=== PATIENT | female | born 1950 | race Caucasian/White ===

== ENCOUNTER 2020-09-04 13:37 | Observation (INO) | payer MEDICARE ==
[2020-09-04 13:48] LABS: Glucose,Whole Blood 137 mg/dL (75-99)
[2020-09-04] MEDS ORDERED: SODIUM CHLORIDE 0.9% 500 ML 500 ML IV STA (13:48)
[2020-09-04] MEDS ORDERED: MECLIZINE 25 MG TAB PO STA (13:50)
[2020-09-04] MEDS ORDERED: DIAZEPAM 5 MG/ML 2 ML INJ IVP STA (13:50)
--- NOTE | 2020-09-04 13:53 | ED ---
General Adult HPI - General Stated complaint: syncope Time Seen by Provider: 09/04/20 13:40 Source: patient, RN notes reviewed, old records reviewed - History of Present Illness Initial comments: This is a 69-year-old female presents emergency Department complaining of having a sudden onset of dizziness. Patient states movement of the head makes considerable he worse. Patient states closer eyes makes it better. Patient states when it occurred she became very diaphoretic and nauseated. Patient denies any vomiting. Patient denies any headache patient denies numbness weakness. Patient denies any recent fever chills or cough. Patient denies similar symptoms in the past. Patient denies any visual disturbance. - Related Data Home Medications Medication Instructions Recorded Confirmed Esomeprazole Magnesium [NexIUM] 40 mg PO DAILY 08/24/14 10/28/15 Pioglitazone HCl [Actos] 15 mg PO DAILY 08/24/14 10/28/15 Methimazole 5 mg PO DAILY 10/16/14 10/28/15 INSULIN LISPRO (HumaLOG) [humaLOG] See Protocol SQ TID PRN 10/28/15 10/28/15 Previous Rx's Medication Instructions Recorded Insulin Glargine [Lantus] 20 unit SQ HS #1 vial 10/30/15 Insulin Glargine [Lantus] 40 unit INJ QAM #0 10/30/15 metFORMIN HCL 500 mg PO BID #60 tablet 10/30/15 Allergies Allergy/AdvReac Type Severity Reaction Status Date / Time No Known Allergies Allergy Verified 10/28/15 12:49 Review of Systems ROS Statement: Those systems with pertinent positive or pertinent negative responses have been documented in the HPI. ROS Other: All systems not noted in ROS Statement are negative. Past Medical History Past Medical History: Diabetes Mellitus, Hypertension Additional Past Medical History / Comment(s): hyperthyroid, HX OF RIGGS'S ESOPHAGUS History of Any Multi-Drug Resistant Organisms: None Reported Past Surgical History: Section, Hernia Repair, Hysterectomy Additional Past Surgical History / Comment(s): 7 abdominal surgeries -ended in 1992 Past Anesthesia/Blood Transfusion Reactions: No Reported Reaction Past Psychological History: No Psychological Hx Reported Past Alcohol Use History: None Reported Past Drug Use History: None Reported - Past Family History Mother Family Medical History: Cancer Additional Family Medical History / Comment(s): LYMPHOMA General Exam - General Exam Comments Initial Comments: GENERAL: Patient is well-developed and well-nourished. Patient is nontoxic and well- hydrated and is in mild distress. ENT: Neck is soft and supple. No significant lymphadenopathy is noted. Oropharynx is clear. Moist mucous membranes. Neck has full range of motion without eliciting any pain. EYES: The sclera were anicteric and conjunctiva were pink and moist. Extraocular movements were intact and pupils were equal round and reactive to light. Eyelids were unremarkable. PULMONARY: Unlabored respirations. Good breath sounds bilaterally. No audible rales rhonchi or wheezing was noted. CARDIOVASCULAR: There is a regular rate and rhythm without any murmurs gallops or rubs. ABDOMEN: Soft and nontender with normal bowel sounds. SKIN: Skin is clear with no lesions or rashes and otherwise unremarkable. NEUROLOGIC: Patient is alert and oriented x3. Cranial nerves II through XII are grossly intact. Motor and sensory are also intact. Normal speech, volume and content. Symmetrical smile. Finger to nose testing bilaterally was normal. MUSCULOSKELETAL: Normal extremities with adequate strength and full range of motion. No lower extremity swelling or edema. No calf tenderness. LYMPHATICS: No significant lymphadenopathy is noted PSYCHIATRIC: Normal psychiatric evaluation. Course Vital Signs 09/04/20 09/04/20 13:38 14:49 Temperature 97.6 F Pulse Rate 69 73 Respiratory 18 18 Rate Blood Pressure 131/56 140/76 O2 Sat by Pulse 100 98 Oximetry Medical Decision Making - Medical Decision Making EKG shows normal sinus rhythm at 69 bpm WA interval is 144 QRS is 92 QT interval is 428 QTC is 458. Patient's EKG shows no ST segment elevation or depression. Computed tomography scan of the brain shows no acute abnormality. Chest x-ray shows no acute abnormality. I went back into the room to reevaluate the patient she was unable to even sit up in bed without getting extremely dizzy and nauseated. Patient states she could not go home and this condition. I spoke with the [facility] hospitalist and wanted to admit the patient admitted the patient wrote admitting orders. - Lab Data Result diagrams: 09/04/20 14:00 09/04/20 14:00 Lab Results 09/04/20 09/04/20 09/04/20 Range/Units 13:44 14:00 14:00 WBC 4.7 (3.8-10.6) k/uL RBC 4.20 (3.80-5.40) m/uL Hgb 13.0 (11.4-16.0) gm/dL Hct 39.8 (34.0-46.0) % MCV 94.9 (80.0-100.0) fL MCH 30.9 (25.0-35.0) pg MCHC 32.6 (31.0-37.0) g/dL RDW 12.8 (11.5-15.5) % Plt Count 178 (150-450) k/uL Neutrophils % 71 % Lymphocytes % 19 % Monocytes % 5 % Eosinophils % 3 % Basophils % 1 % Neutrophils # 3.3 (1.3-7.7) k/uL Lymphocytes # 0.9 L (1.0-4.8) k/uL Monocytes # 0.2 (0-1.0) k/uL Eosinophils # 0.1 (0-0.7) k/uL Basophils # 0.0 (0-0.2) k/uL Sodium 136 L (137-145) mmol/L Potassium 4.0 (3.5-5.1) mmol/L Chloride 105 (98-107) mmol/L Carbon Dioxide 20 L (22-30) mmol/L Anion Gap 11 mmol/L BUN 24 H (7-17) mg/dL Creatinine 1.26 H (0.52-1.04) mg/dL Est GFR (CKD-EPI)AfAm 50 (>60 ml/min/1.73 sqM) Est GFR (CKD-EPI)NonAf 44 (>60 ml/min/1.73 sqM) Glucose 146 H (74-99) mg/dL POC Glucose (mg/dL) 137 H (75-99) mg/dL POC Glu [employer] ID [place], [place] Calcium 10.5 H (8.4-10.2) mg/dL Magnesium 1.7 (1.6-2.3) mg/dL Total Bilirubin 0.5 (0.2-1.3) mg/dL AST 26 (14-36) U/L ALT 16 (4-34) U/L Alkaline Phosphatase 90 (38-126) U/L Total Protein 6.7 (6.3-8.2) g/dL Albumin 4.2 (3.5-5.0) g/dL Disposition Clinical Impression: Vertigo Disposition: ADMITTED IP TO THIS HOSP Referrals: Linda Monzon MD [Primary Care Provider] - 1-2 days Time of Disposition: 15:06
[2020-09-04 14:37] LABS: Basophils % (A) 1 %; Eosinophils # (A) 0.1 k/uL (0-0.7); Eosinophils % (A) 3 %; HCT 39.8 % (34.0-46.0); Lymphocytes # (A) 0.9 k/uL (1.0-4.8); Lymphocytes % (A) 19 %; MCH 30.9 pg (25.0-35.0); MCHC 32.6 g/dL (31.0-37.0); MCV 94.9 fL (80.0-100.0); Mean Platelet Volume 7.2; Monocytes # (A) 0.2 k/uL (0-1.0); Monocytes % (A) 5 %; Neutrophils # (A) 3.3 k/uL (1.3-7.7); Neutrophils % (A) 71 %; Platelet Count 178 k/uL (150-450); RDW 12.8 % (11.5-15.5); WBC 4.7 k/uL (3.8-10.6)
[2020-09-04 14:44] LABS: Albumin 4.2 g/dL (3.5-5.0); Calcium 10.5 mg/dL (8.4-10.2); Magnesium 1.7 mg/dL (1.6-2.3); Total Bilirubin 0.5 mg/dL (0.2-1.3); Total Protein 6.7 g/dL (6.3-8.2)
--- NOTE | 2020-09-04 14:48 | CT ---
EXAMINATION TYPE: CT brain wo con DATE OF EXAM: 09/04/2020 HISTORY: Syncope. Extraocular motor defect CT DLP: 1090.4 mGycm. Automated Exposure Control for Dose Reduction was Utilized. TECHNIQUE: CT scan of the head is performed without contrast. COMPARISON: None. FINDINGS: There is no acute intracranial hemorrhage or midline shift identified. There is diffuse v entricular and sulcal prominence consistent with diffuse age-related cerebral atrophy. There is low- attenuation in the periventricular white matter consistent with chronic small vessel ischemic change. Suprasellar cistern is maintained. The globes are intact and the visualized sinuses are clear. IMPRESSION: No acute intracranial hemorrhage or midline shift. There is mild to moderate diffuse ag e-related cerebral atrophy and mild chronic small vessel ischemic change noted.
--- NOTE | 2020-09-04 14:51 | XR ---
EXAMINATION TYPE: XR chest 2V DATE OF EXAM: 09/04/2020 COMPARISON: 10/28/2015 HISTORY: 69-year-old female with chest pain TECHNIQUE: AP and lateral views FINDINGS: Heart mildly enlarged. Low lung volumes with crowded vascular markings. Bony vasculature within kimmie l limits. No consolidation or pleural effusion. IMPRESSION: Mild cardiomegaly. Hypoventilatory changes. No acute process otherwise seen.
[2020-09-04] MEDS ORDERED: SODIUM CHLORIDE 0.9% 1,000 ML IV ONE (15:10)
[2020-09-04] MEDS ORDERED: MECLIZINE 25 MG TAB PO PRN (15:13)
[2020-09-04] MEDS ORDERED: SODIUM CHLORIDE 0.9% 500 ML 500 ML IV ONE (15:56)
--- NOTE | 2020-09-04 16:15 | CT ---
EXAMINATION TYPE: CT angio head neck DATE OF EXAM: 09/04/2020 HISTORY: Syncope, vertigo, and nausea. COMPARISON: None CT DLP: 676.4 mGycm. Automated Exposure Control for Dose Reduction was Utilized. TECHNIQUE: CTA scan of the head and neck are performed with IV Contrast, patient injected with 65 mL of Isovue 370, axial images are obtained, coronal and sagittal reformatted images are reviewed. Thre e-D reconstructed images are created on an independent workstation and reviewed. FINDINGS: Carotid/Vascular Structures: Bovine-type origin from aortic arch which is normal variant. Right commo n carotid artery shows normal origin from right brachiocephalic artery. Mild plaque left greater than right carotid bulbs. No significant stenosis in common or internal carotid arteries bilaterally. No significant plaque or stenosis left external carotid arteries bilaterally. Slightly larger or dominant left vertebral artery. Vertebral arteries are patent to basilar junction. No significant focal stenosis or aneurysmal change of the posterior circulation. There are hypoplast ic bilateral posterior communicating arteries noted. Images of the anterior circulation show patent a nterior communicating artery. No significant focal stenosis or aneurysmal change is seen. Other: Slightly levoconvex scoliotic curvature positioning. Asymmetric heterogeneous right thyroid po sterior prominence. IMPRESSION: No significant stenosis in common or internal carotid arteries bilaterally. No significa nt stenosis or aneurysmal change at the level of the [place].
[2020-09-04 16:31] LABS: Partial Thromboplastin Time 22.1 sec (22.0-30.0); Prothrombin Time 10.4 sec (9.0-12.0)
[2020-09-04] MEDS: ASPIRIN 81 MG PO SCH (16:52)
[2020-09-04 17:15] LABS: Glucose,Whole Blood 188 mg/dL (75-99)
--- NOTE | 2020-09-04 17:15 | P.HPIM ---
History of Present Illness 70-year-old pleasant female came in with complaints of lightheadedness as well as were the genus symptoms patient became diaphoretic and nauseated and patient was given juice the patient blood sugars were not low at that time. Patient denied any fever chills denied any vomiting. Patient denied any diarrhea. We do not have any orthostatic vitals available at this time patient is on methimazole recent TSH 5 days ago is within normal limits, patient has LDL of around 60 patient had a computed tomography scan of the head which showed chronic microvascular ischemic changes patient doesn't have any slurred speech or focal weakness. Patient had a CT angiogram of the head and neck which did not show any significant abnormality either. Patient does take 81 mg of aspirin at home. Patient denied any hearing problems runny nose fullness in the ears or tinnitus. Patient received a meclizine with which her symptoms improved a bit and I did perform sunil- Halspike maneuver which did not show any nystagmus but her symptoms did improve with that maneuver. Review of Systems REVIEW OF SYSTEMS: CONSTITUTIONAL: No fever, no malaise, no fatigue. HEENT: No recent visual problems or hearing problems. Denied any sore throat. CARDIOVASCULAR: No chest pain, orthopnea, PND, no palpitations, no syncope. PULMONARY: No shortness of breath, no cough, no hemoptysis. GASTROINTESTINAL: No diarrhea, no nausea, no vomiting, no abdominal pain. NEUROLOGICAL: No headaches, no weakness, no numbness. HEMATOLOGICAL: Denies any bleeding or petechiae. GENITOURINARY: Denies any burning micturition, frequency, or urgency. MUSCULOSKELETAL/RHEUMATOLOGICAL: Denies any joint pain, swelling, or any muscle pain. ENDOCRINE: Denies any polyuria or polydipsia. The rest of the 14-point review of systems is negative. Past Medical History Past Medical History: Diabetes Mellitus, GERD/Reflux, Hypertension, Osteoarthritis (OA) Additional Past Medical History / Comment(s): IDDM type II, DKA, pt states recent BUN was elevated, Sadler's esophagus, small hiatal hernia, gastric polyp, arthritis bilateral hands/back. History of Any Multi-Drug Resistant Organisms: None Reported Past Surgical History: Adenoidectomy, Appendectomy, Section, Hernia Repair, Hysterectomy, Tonsillectomy Additional Past Surgical History / Comment(s): x3, incisional hernia repair, surgery for hydatidiform, EGDs, colonoscopy Past Anesthesia/Blood Transfusion Reactions: No Reported Reaction Smoking Status: Never smoker - Past Family History Mother Family Medical History: Cancer Additional Family Medical History / Comment(s): LYMPHOMA Father Family Medical History: No Reported History Medications and Allergies Home Medications Medication Instructions Recorded Confirmed Type Atorvastatin Calcium [Lipitor] 20 mg PO DAILY 09/04/20 09/04/20 History Benazepril HCl [Lotensin] 20 mg PO DAILY 09/04/20 09/04/20 History Biotin (Unknown Strength) 1 tab PO DAILY 09/04/20 09/04/20 History Cyclobenzaprine [Flexeril] 10 mg PO DAILY 09/04/20 09/04/20 History Insulin Glargine [Lantus] 40 unit SQ DAILY 09/04/20 09/04/20 History Magnesium (Unknown Strength) 1 tab PO DAILY 09/04/20 09/04/20 History Pioglitazone [Actos] 30 mg PO DAILY 09/04/20 09/04/20 History Vitamin C (Unknown Strength) 1 tab PO DAILY 09/04/20 09/04/20 History Vitamin D (Unknown Strength) 1 tab PO DAILY 09/04/20 09/04/20 History hydroCHLOROthiazide [Hydrodiuril] 25 mg PO DAILY 09/04/20 09/04/20 History metFORMIN HCL [Glucophage] 500 mg PO DAILY 09/04/20 09/04/20 History Allergies Allergy/AdvReac Type Severity Reaction Status Date / Time No Known Allergies Allergy Verified 09/04/20 16:55 Physical Exam Vitals: Vital Signs Temp Pulse Pulse Resp BP BP Pulse Ox 09/04/20 16:30 97.4 F L 85 16 145/85 99 09/04/20 15:49 83 18 151/85 100 09/04/20 14:49 73 18 140/76 98 09/04/20 13:38 97.6 F 69 18 131/56 100 Intake and Output 09/04/20 09/04/20 09/04/20 06:59 14:59 22:59 Other: Weight 86.183 kg 86.183 kg PHYSICAL EXAMINATION: GENERAL: The patient is alert and oriented x3, not in any acute distress. Well developed, well nourished. HEENT: Pupils are round and equally reacting to light. EOMI. No scleral icterus. No conjunctival pallor. Normocephalic, atraumatic. No pharyngeal erythema. No thyromegaly. CARDIOVASCULAR: S1 and S2 present. No murmurs, rubs, or gallops. PULMONARY: Chest is clear to auscultation, no wheezing or crackles. ABDOMEN: Soft, nontender, nondistended, normoactive bowel sounds. No palpable organomegaly. MUSCULOSKELETAL: No joint swelling or deformity. EXTREMITIES: No cyanosis, clubbing, or pedal edema. NEUROLOGICAL: Gross neurological examination did not reveal any focal deficits. SKIN: No rashes. Results CBC & Chem 7: 09/04/20 14:00 09/04/20 14:00 Labs: Abnormal Lab Results - Last 24 Hours (Table) 09/04/20 09/04/20 09/04/20 Range/Units 13:44 14:00 14:00 Lymphocytes # 0.9 L (1.0-4.8) k/uL Sodium 136 L (137-145) mmol/L Carbon Dioxide 20 L (22-30) mmol/L BUN 24 H (7-17) mg/dL Creatinine 1.26 H (0.52-1.04) mg/dL Glucose 146 H (74-99) mg/dL POC Glucose (mg/dL) 137 H (75-99) mg/dL Calcium 10.5 H (8.4-10.2) mg/dL Thrombosis Risk Factor Assmnt - Choose All That Apply Any of the Below Risk Factors Present?: Yes Each Factor Represents 1 point: Obesity (BMI >25) Other Risk Factors: Yes Each Risk Factor Represents 2 Points: Age 61-74 years Other congenital or acquired thrombophilia - If yes, enter type in comment: No Thrombosis Risk Factor Assessment Total Risk Factor Score: 3 Thrombosis Risk Factor Assessment Level: Moderate Risk Assessment and Plan Plan: -Vertigo: Appears to be preserved) possibly benign push vertigo, continue with meclizine - chronic kidney disease stage 3: 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 -Type 2 diabetes mellitus [place] patient will be continued on her insulin along with sliding scale hold off on by mouth hypoglycemic agents. because of chronic kidney disease patient is probably not an appropriate candidate for metformin. -Hypertension patient will be continued on MICAELA inhibitor although patient did not benefit from hydrochlorothiazide because of her poor renal function -Hyperthyroidism continue with methimazole recent TSH is within normal limits -History of CVA in the past patient will be continued on aspirin -Hyperlipidemia. -DVT prophylaxis early ambulation
[2020-09-04] MEDS: INSULIN ASPART (NovoLOG) 100 UNIT/ML VIAL SQ SCH ×2 (17:50→20:45)
[2020-09-04 20:44] LABS: Glucose,Whole Blood 343 mg/dL (75-99)
[2020-09-04] MEDS: SODIUM CHLORIDE 0.9% 1,000 ML IV SCH (20:45)
[2020-09-04 22:36] VITALS: RESP 18
[2020-09-05] MEDS: SODIUM CHLORIDE 0.9% 1,000 ML IV SCH (05:27)
[2020-09-05 06:18] LABS: Glucose,Whole Blood 183 mg/dL (75-99)
[2020-09-05] MEDS: INSULIN ASPART (NovoLOG) 100 UNIT/ML VIAL SQ SCH ×2 (06:30→13:22)
[2020-09-05] MEDS ORDERED: INSULIN DETEMIR (LEVEMIR) 100 UNIT/ML SYR SQ SCH (07:00)
[2020-09-05 08:03] LABS: Calcium 9.3 mg/dL (8.4-10.2); Potassium 3.8 mmol/L (3.5-5.1)
[2020-09-05] MEDS: ASPIRIN 81 MG PO SCH (08:28)
[2020-09-05] MEDS ORDERED: PIOGLITAZONE 30 MG TAB PO SCH (09:00)
[2020-09-05] MEDS ORDERED: ATORVASTATIN 20 MG TAB PO SCH (09:00)
[2020-09-05] MEDS ORDERED: CYCLOBENZAPRINE 10 MG TAB PO SCH (09:00)
[2020-09-05] MEDS ORDERED: lisinopriL 20 MG TAB PO SCH (09:00)
[2020-09-05 10:38] VITALS: BP 126/59; PULSE 95; TEMP 97.8
--- NOTE | 2020-09-05 10:50 | P.CNNES ---
History of Present Illness Consult date: 09/05/20 Requesting physician: Mickey Hermosillo Reason for Consult: Vertigo, extraocular abnormality History of Present Illness: Patient is a 69-year-old female came to the hospital yesterday at 3 PM for possible hypoglycemia. Patient states that she has history of diabetes for 15 years. Yesterday morning she had an apple for breakfast, then took her usual dose of Lantus, metformin and Actos and then went to [facility]. After completing shopping, she continued to walk [place] the [place] to perform [place] exercises. When she was all done, she was driving back to her home, then she started feeling dizzy, lightheaded, diaphoretic, chills, felt her coordination was off. She felt her blood sugar was low. She pulled over, and went to a gas station, honked, and the gas station staff brought her big apple juice bottle. They also gave her candies. EMS was also called and when they arrived, patient was sitting in the interstate bus driver's seat of her car, alert and oriented 4. Patient was appearing pale, extremely diaphoretic. Her vitals at the scene was blood pressure 149/52, pulse rate 78, respirations 16 and saturation 95% and blood sugar was 133. This was done about 15 minutes after she had drank all the apple juice. She still felt slightly weak, therefore decided to come to the hospital by ambulance. Vital signs on arrival was blood pressure 131/56, pulse rate [address] head showed no acute intracranial hemorrhage or midline shift. There is mild to moderate diffuse age-related cerebral atrophy and mild chronic small vessel ischemic change noted. On my review, the visualized paranasal sinuses are clear and external auditory canals clear. Chest x-ray showed mild cardiomegaly. Hypoventilatory changes. No acute process otherwise seen. EKG shows normal sinus rhythm with sinus arrhythmia. Minimal voltage criteria for LVH. Nonspecific T wave abnormality. CTA of head and neck showed no s ignificant stenosis in common or internal carotid arteries bilaterally. No significant stenosis or aneurysmal change at the level of [place]. Blood tests shows normal CBC, PT/PTT. Chem-7 with BUN 19, creatinine 1.20. Hemoglobin A1c 9.8 on 08/30/2020. TSH is normal. Total cholesterol 146, LDL 67, HDL 65 and triglycerides 69. Patient states she has history of diabetes for 15 years, hypertension which is controlled. She has history of blood sugar going down as low as 40 about a year ago. Patient takes aspirin 81 mg daily, Lipitor 40 mg. She is nonsmoker does not drink alcohol. She is a retired nurse. No previous history of strokes or TIA. Review of Systems At present completely unremarkable. Patient denied any chest pain, shortness of breath wheezing or cough. Denies double vision loss of vision hoarseness, sore throat or dysphagia. Denies any facial droop, focal numbness tingling or weakness on any stroke symptoms. All other 14 points of review of systems reviewed and unremarkable. Past Medical History Past Medical History: Diabetes Mellitus, GERD/Reflux, Hypertension, Osteoarthritis (OA) Additional Past Medical History / Comment(s): IDDM type II, DKA, pt states rec ent BUN was elevated, Sadler's esophagus, small hiatal hernia, gastric polyp, arthritis bilateral hands/back. History of Any Multi-Drug Resistant Organisms: None Reported Past Surgical History: Adenoidectomy, Appendectomy, Section, Hernia R epair, Hysterectomy, Tonsillectomy Additional Past Surgical History / Comment(s): x3, incisional hernia repair, surgery for hydatidiform, EGDs, colonoscopy Past Anesthesia/Blood Transfusion Reactions: No Reported Reaction Smoking Status: Never smoker - Past Family History Mother Family Medical History: Cancer Additional Family Medical History / Comment(s): LYMPHOMA Father Family Medical History: No Reported History Medications and Allergies Home Medications Medication Instructions Recorded Confirmed Type Atorvastatin Calcium [Lipitor] 20 mg PO DAILY 09/04/20 09/04/20 History Benazepril HCl [Lotensin] 20 mg PO DAILY 09/04/20 09/04/20 History Biotin (Unknown Strength) 1 tab PO DAILY 09/04/20 09/04/20 History Cyclobenzaprine [Flexeril] 10 mg PO DAILY 09/04/20 09/04/20 History Insulin Glargine [Lantus] 40 unit SQ DAILY 09/04/20 09/04/20 History Magnesium (Unknown Strength) 1 tab PO DAILY 09/04/20 09/04/20 History Pioglitazone [Actos] 30 mg PO DAILY 09/04/20 09/04/20 History Vitamin C (Unknown Strength) 1 tab PO DAILY 09/04/20 09/04/20 History Vitamin D (Unknown Strength) 1 tab PO DAILY 09/04/20 09/04/20 History hydroCHLOROthiazide [Hydrodiuril] 25 mg PO DAILY 09/04/20 09/04/20 History metFORMIN HCL [Glucophage] 500 mg PO DAILY 09/04/20 09/04/20 History Allergies Allergy/AdvReac Type Severity Reaction Status Date / Time No Known Allergies Allergy Verified 09/04/20 16:55 Physical Examination - Vital Signs Vital Signs: Vital Signs Temp Pulse Pulse Resp BP BP Pulse Ox 09/05/20 02:41 97.5 F L 93 18 120/61 97 09/04/20 21:00 97.6 F 87 18 120/57 96 09/04/20 17:35 85 09/04/20 16:30 97.4 F L 85 16 145/85 99 09/04/20 15:49 83 18 151/85 100 09/04/20 14:49 73 18 140/76 98 09/04/20 13:38 97.6 F 69 18 131/56 100 Intake and Output 09/04/20 09/05/20 09/05/20 22:59 06:59 14:59 Other: Voiding Method Toilet Toilet # Voids 1 Weight 86.183 kg On examination patient is an elderly female, very pleasant, in no acute distress. Patient is alert awake oriented to time place and person. Speech and language functions are normal. Attention and concentration fund of knowledge is adequate. On cranial nerve examination pupils are round and reacting to light, visual small are full on confrontation. Extraocular muscles are intact with no nystagmus. Face is symmetric, tongue protrudes to the midline. Palatal elevation and sensation normal. Hearing and shoulder shrug normal. On muscle strength testing there is no pronator drift and the strength is normal in arms and legs distally and proximally. Reflexes are diminished and plantars are downgoing. Sensory touch is equal. No ataxia for [id number] or jizm-ut-[id number] testing. Tone and bulk of muscles normal. Gait normal. No carotid bruit or murmur, peripheral pulses present. No peripheral edema. Chest is clear, abdomen is soft nontender. Results - Laboratory Findings CBC and BMP: 09/04/20 14:00 09/05/20 07:21 Abnormal Lab Findings: Abnormal Labs 09/04/20 09/04/2020 13:44 14:00 14:00 Lymphocytes # 0.9 L Sodium 136 L Carbon Dioxide 20 L BUN 24 H Creatinine 1.26 H Glucose 146 H POC Glucose (mg/dL) 137 H Calcium 10.5 H 09/04/20 09/04/20 09/05/20 17:13 20:38 06:15 Lymphocytes # Sodium Carbon Dioxide BUN Creatinine Glucose POC Glucose (mg/dL) 188 H 343 H 183 H Calcium 09/05/20 07:21 Lymphocytes # Sodium Carbon Dioxide BUN 19 H Creatinine 1.20 H Glucose 167 H POC Glucose (mg/dL) Calcium Assessment and Plan Assessment: * Episode of lightheadedness, diaphoresis, dizziness, likely due to hypoglycemia. Patient had taken an apple for breakfast, and then took all of her medications including Lantus, metformin and Actos. This probably led to hypoglycemia. Her blood sugar was 133 when EMS arrived, probably has normalized after she had drank a big bottle of apple juice. Current examination is nonfocal. * Diabetes, not very well controlled the last A1c 9.8 on 08/30/2020. * Hypertension Plan: * No other neurological workup indicated. * Avoid episodes of hypoglycemia by taking regular meals. * Optimize control of diabetes. Hemoglobin A1c 9.8. * Continue aspirin and statins. * Neurologically clear for discharge.
[2020-09-05 13:06] LABS: Glucose,Whole Blood 143 mg/dL (75-99)
--- NOTE | 2020-09-05 14:32 | P.DS ---
Providers Date of admission: 09/04/20 15:12 Attending physician: Carley Escobar Consults: 09/04/20 15:10 Consult Physician Urgent Consulting Provider: Az Aguilera Consult Reason/Comments: Vertigo, extraocular abnormality Do you want consulting provider notified?: Yes Primary care physician: Linda Eleanor Slater Hospital Course: 70-year-old pleasant female came in with complaints of lightheadedness as well as were the genus symptoms patient became diaphoretic and nauseated and patient was given juice the patient blood sugars were not low at that time. Patient denied any fever chills denied any vomiting. Patient denied any diarrhea. We do not have any orthostatic vitals available at this time patient is on methimazole recent TSH 5 days ago is within normal limits, patient has LDL of around 60 patient had a computed tomography scan of the head which showed chronic microvascular ischemic changes patient doesn't have any slurred speech or focal weakness. Patient had a CT angiogram of the head and neck which did not show any significant abnormality either. Patient does take 81 mg of aspirin at home. Patient denied any hearing problems runny nose fullness in the ears or tinnitus. Patient received a meclizine with which her symptoms improved a bit and I did perform sunil- Halspike maneuver which did not show any nystagmus but her symptoms did improve with that maneuver. 09/05/2020 Patient's symptoms resolved. And patient wanted to go home. Is on hydrocodone for his does have chronic kidney disease because of which are hydrocodone thiazide may not be beneficial at all her regular thiazide will be discontinued patient blood pressure is doing well without that medication at this time. Patient is also on metformin although metformin can be used since her kidney function is borderline and discontinue metformin as well and patient will be discharged neurology evaluated the patient and that they do not believe patient will need further workup and. They believe his symptoms are secondary to hypoglycemia although she doesn't have any hyperglycemic episodes here. PHYSICAL EXAMINATION: GENERAL: The patient is alert and oriented x3, not in any acute distress. Well developed, well nourished. HEENT: Pupils are round and equally reacting to light. EOMI. No scleral icterus. No conjunctival pallor. Normocephalic, atraumatic. No pharyngeal erythema. No thyromegaly. CARDIOVASCULAR: S1 and S2 present. No murmurs, rubs, or gallops. PULMONARY: Chest is clear to auscultation, no wheezing or crackles. ABDOMEN: Soft, nontender, nondistended, normoactive bowel sounds. No palpable organomegaly. MUSCULOSKELETAL: No joint swelling or deformity. EXTREMITIES: No cyanosis, clubbing, or pedal edema. NEUROLOGICAL: Gross neurological examination did not reveal any focal deficits. SKIN: No rashes. Assessment and Plan Plan: -Vertigo: Peripheral vertigo probably benign push vertigo symptoms resolved at this time - chronic kidney disease stage 3: 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 -Type 2 diabetes mellitus -Hypertension -Hyperthyroidism continue with methimazole recent TSH is within normal limits -History of CVA in the past patient will be continued on aspirin -Hyperlipidemia. Plan - Discharge Summary Discharge Rx Participant: No New Discharge Prescriptions: Continue Insulin Glargine [Lantus] 40 unit SQ DAILY Biotin (Unknown Strength) 1 tab PO DAILY Magnesium (Unknown Strength) 1 tab PO DAILY Vitamin C (Unknown Strength) 1 tab PO DAILY Vitamin D (Unknown Strength) 1 tab PO DAILY Atorvastatin Calcium [Lipitor] 20 mg PO DAILY Benazepril HCl [Lotensin] 20 mg PO DAILY Cyclobenzaprine [Flexeril] 10 mg PO DAILY Pioglitazone [Actos] 30 mg PO DAILY Discontinued hydroCHLOROthiazide [Hydrodiuril] 25 mg PO DAILY metFORMIN HCL [Glucophage] 500 mg PO DAILY Discharge Medication List Atorvastatin Calcium [Lipitor] 20 mg PO DAILY 09/04/20 [History] Benazepril HCl [Lotensin] 20 mg PO DAILY 09/04/20 [History] Biotin (Unknown Strength) 1 tab PO DAILY 09/04/20 [History] Cyclobenzaprine [Flexeril] 10 mg PO DAILY 09/04/20 [History] Insulin Glargine [Lantus] 40 unit SQ DAILY 09/04/20 [History] Magnesium (Unknown Strength) 1 tab PO DAILY 09/04/20 [History] Pioglitazone [Actos] 30 mg PO DAILY 09/04/20 [History] Vitamin C (Unknown Strength) 1 tab PO DAILY 09/04/20 [History] Vitamin D (Unknown Strength) 1 tab PO DAILY 09/04/20 [History] Follow up Appointment(s)/Referral(s): Linda Monzon MD [Primary Care Provider] - 09/11/20 1:00 pm Patient Instructions/Handouts: Dehydration (GEN), Hypoglycemia in a Person with Diabetes (GEN), Dizziness (GEN) Discharge Disposition: HOME SELF-CARE
== END 2020-09-05 13:51 | disposition home or self-care (01) ==
LOC: EC 13:37 → 3NCARDOBS 15:12
PROVIDERS: ADMIT Hospitalist; ATTEND Hospitalist
DX: R42 Dizziness and giddiness (principal); E11.22 Type 2 diabetes mellitus with diabetic chronic kidney disease; E11.649 Type 2 diabetes mellitus with hypoglycemia without coma; E78.5 Hyperlipidemia, unspecified; I12.9 Hypertensive chronic kidney disease with stage 1 through stage 4 chronic kidney disease, or unspecified chronic kidney disease; K22.70 Barrett's esophagus without dysplasia; R61 Generalized hyperhidrosis; R11.0 Nausea; M19.041 Primary osteoarthritis, right hand; M19.042 Primary osteoarthritis, left hand; N18.30 Chronic kidney disease, stage 3 unspecified; Z79.4 Long term (current) use of insulin; Z79.82 Long term (current) use of aspirin; Z79.899 Other long term (current) drug therapy; Z80.7 Family history of other malignant neoplasms of lymphoid, hematopoietic and related tissues; Z86.73 Personal history of transient ischemic attack (TIA), and cerebral infarction without residual deficits; Z90.710 Acquired absence of both cervix and uterus
CPT/HCPCS: 96361; 96374; 99285; 36415; 93005; 80053; 80048; 83735; 84484; 85025; 85610; 85730; 71046; 70496; 70450; 70498; G0378 ×2; J3360; Q9967

== ENCOUNTER 2022-06-28 10:10 | Emergency (ER) | payer MEDICARE ==
[2022-06-28 10:18] VITALS: BP 162/67; PULSE 82; RESP 18; TEMP 97.7
[2022-06-28] MEDS ORDERED: SODIUM CHLORIDE 0.9% 500 ML 500 ML IV STA (10:22)
--- NOTE | 2022-06-28 10:27 | ED ---
General Adult HPI - General Chief complaint: Weakness Stated complaint: Weakness Time Seen by Provider: 06/28/22 10:10 Source: patient, EMS, RN notes reviewed, old records reviewed Mode of arrival: EMS Limitations: no limitations - History of Present Illness Initial comments: This is a 71-year-old female who presents emergency Department complaining that the last 2 morning she woke up and her legs are cramping and she can't stand because she feels too weak. Patient states she sits around for a little while and then it goes away she's finding the rest of the day. Patient states currently she feels fine and the pain and cramping is gone and she feels like her strength is back. Patient states she also wakes up and often times her sugar is under 70 and this morning it was 57. Patient doesn't believe that's the problem because she says this happened multiple times in the past. Patient denies any fever chills or cough. Patient denies any chest pain or palpitations. Patient denies abdominal pain patient denies nausea vomiting diarrhea. - Related Data Home Medications Medication Instructions Recorded Confirmed Atorvastatin Calcium [Lipitor] 20 mg PO DAILY 09/04/20 09/04/20 Benazepril HCl [Lotensin] 20 mg PO DAILY 09/04/20 09/04/20 Biotin (Unknown Strength) 1 tab PO DAILY 09/04/20 09/04/20 Cyclobenzaprine [Flexeril] 10 mg PO DAILY 09/04/20 09/04/20 Insulin Glargine [Lantus Vial] 40 unit SQ DAILY 09/04/20 09/04/20 Magnesium (Unknown Strength) 1 tab PO DAILY 09/04/20 09/04/20 Pioglitazone [Actos] 30 mg PO DAILY 09/04/20 09/04/20 Vitamin C (Unknown Strength) 1 tab PO DAILY 09/04/20 09/04/20 Vitamin D (Unknown Strength) 1 tab PO DAILY 09/04/20 09/04/20 Allergies Allergy/AdvReac Type Severity Reaction Status Date / Time No Known Allergies Allergy Verified 06/28/22 10:16 Review of Systems ROS Statement: Those systems with pertinent positive or pertinent negative responses have been documented in the HPI. ROS Other: All systems not noted in ROS Statement are negative. Past Medical History Past Medical History: Diabetes Mellitus, GERD/Reflux, Hypertension, Osteoarthritis (OA) Additional Past Medical History / Comment(s): IDDM type II, DKA, pt states recent BUN was elevated, Sadler's esophagus, small hiatal hernia, gastric polyp, arthritis bilateral hands/back. History of Any Multi-Drug Resistant Organisms: None Reported Past Surgical History: Adenoidectomy, Appendectomy, Section, Hernia Repair, Hysterectomy, Tonsillectomy Additional Past Surgical History / Comment(s): x3, incisional hernia repair, surgery for hydatidiform, EGDs, colonoscopy Past Anesthesia/Blood Transfusion Reactions: No Reported Reaction Past Psychological History: No Psychological Hx Reported Smoking Status: Never smoker Past Alcohol Use History: None Reported Past Drug Use History: None Reported - Past Family History Mother Family Medical History: Cancer Additional Family Medical History / Comment(s): LYMPHOMA Father Family Medical History: No Reported History General Exam - General Exam Comments Initial Comments: GENERAL: Patient is well-developed and well-nourished. Patient is nontoxic and well- hydrated and is in no acute distress. ENT: Neck is soft and supple. No significant lymphadenopathy is noted. Oropharynx is clear. Moist mucous membranes. Neck has full range of motion without eliciting any pain. EYES: The sclera were anicteric and conjunctiva were pink and moist. Extraocular movements were intact and pupils were equal round and reactive to light. Eyelids were unremarkable. PULMONARY: Unlabored respirations. Good breath sounds bilaterally. No audible rales rhonchi or wheezing was noted. CARDIOVASCULAR: There is a regular rate and rhythm without any murmurs gallops or rubs. ABDOMEN: Soft and nontender with normal bowel sounds. SKIN: Skin is clear with no lesions or rashes and otherwise unremarkable. NEUROLOGIC: Patient is alert and oriented x3. Cranial nerves II through XII are grossly intact. Motor and sensory are also intact. Normal speech, volume and content. Symmetrical smile. MUSCULOSKELETAL: Normal extremities with adequate strength and full range of motion. LYMPHATICS: No significant lymphadenopathy is noted PSYCHIATRIC: Normal psychiatric evaluation. Limitations: no limitations Course Vital Signs 06/28/22 10:11 Temperature 97.7 F Pulse Rate 82 Respiratory 18 Rate Blood Pressure 162/67 O2 Sat by Pulse 97 Oximetry Medical Decision Making - Medical Decision Making EKG shows sinus rhythm at 82 bpm KS interval 231 QRS is 90 QT interval 360 QTC is 408. Patient's EKG shows no ST segment elevation or depression. Patient had no symptoms throughout her ED stay and she was ambulating fine in the emergency department and wanted to go home. Patient states she'll follow-up with her medical doctor. - Lab Data Result diagrams: 06/28/22 10:30 06/28/22 10:30 Lab Results 06/28/22 06/28/22 06/28/22 Range/Units 10:30 10:30 10:30 WBC 3.8 (3.8-10.6) k/uL RBC 4.07 (3.80-5.40) m/uL Hgb 12.2 (11.4-16.0) gm/dL Hct 38.8 (34.0-46.0) % MCV 95.4 (80.0-100.0) fL MCH 30.1 (25.0-35.0) pg MCHC 31.5 (31.0-37.0) g/dL RDW 12.8 (11.5-15.5) % Plt Count 183 (150-450) k/uL MPV 7.0 Neutrophils % 77 % Lymphocytes % 13 % Monocytes % 6 % Eosinophils % 2 % Basophils % 1 % Neutrophils # 2.9 (1.3-7.7) k/uL Lymphocytes # 0.5 L (1.0-4.8) k/uL Monocytes # 0.2 (0-1.0) k/uL Eosinophils # 0.1 (0-0.7) k/uL Basophils # 0.0 (0-0.2) k/uL Sodium 137 (137-145) mmol/L Potassium 4.4 (3.5-5.1) mmol/L Chloride 99 (98-107) mmol/L Carbon Dioxide 27 (22-30) mmol/L Anion Gap 11 mmol/L BUN 23 H (7-17) mg/dL Creatinine 1.08 H (0.52-1.04) mg/dL Est GFR (CKD-EPI)AfAm 60 (>60 ml/min/1.73 sqM) Est GFR (CKD-EPI)NonAf 52 (>60 ml/min/1.73 sqM) Glucose 199 H (74-99) mg/dL Plasma Lactic Acid Ravinder (0.7-2.0) mmol/L Calcium 9.1 (8.4-10.2) mg/dL Magnesium 2.3 (1.6-2.3) mg/dL Total Bilirubin 0.4 (0.2-1.3) mg/dL AST 55 H (14-36) U/L ALT 31 (4-34) U/L Alkaline Phosphatase 95 (38-126) U/L Troponin I (0.000-0.034) ng/mL Total Protein 6.3 (6.3-8.2) g/dL Albumin 4.1 (3.5-5.0) g/dL Urine Color Light Yellow Urine Appearance Clear (Clear) Urine pH 7.5 (5.0-8.0) Ur Specific [place] 1.010 (1.001-1.035) Urine Protein Negative (Negative) Urine Glucose (UA) Negative (Negative) Urine Ketones Negative (Negative) Urine Blood Negative (Negative) Urine Nitrite Negative (Negative) Urine Bilirubin Negative (Negative) Urine Urobilinogen <2.0 (<2.0) mg/dL Ur Leukocyte Esterase Negative (Negative) 06/28/22 06/28/22 Range/Units 10:30 10:30 WBC (3.8-10.6) k/uL RBC (3.80-5.40) m/uL Hgb (11.4-16.0) gm/dL Hct (34.0-46.0) % MCV (80.0-100.0) fL MCH (25.0-35.0) pg MCHC (31.0-37.0) g/dL RDW (11.5-15.5) % Plt Count (150-450) k/uL MPV Neutrophils % % Lymphocytes % % Monocytes % % Eosinophils % % Basophils % % Neutrophils # (1.3-7.7) k/uL Lymphocytes # (1.0-4.8) k/uL Monocytes # (0-1.0) k/uL Eosinophils # (0-0.7) k/uL Basophils # (0-0.2) k/uL Sodium (137-145) mmol/L Potassium (3.5-5.1) mmol/L Chloride (98-107) mmol/L Carbon Dioxide (22-30) mmol/L Anion Gap mmol/L BUN (7-17) mg/dL Creatinine (0.52-1.04) mg/dL Est GFR (CKD-EPI)AfAm (>60 ml/min/1.73 sqM) Est GFR (CKD-EPI)NonAf (>60 ml/min/1.73 sqM) Glucose (74-99) mg/dL Plasma Lactic Acid Ravinder 1.1 (0.7-2.0) mmol/L Calcium (8.4-10.2) mg/dL Magnesium (1.6-2.3) mg/dL Total Bilirubin (0.2-1.3) mg/dL AST (14-36) U/L ALT (4-34) U/L Alkaline Phosphatase (38-126) U/L Troponin I <0.012 (0.000-0.034) ng/mL Total Protein (6.3-8.2) g/dL Albumin (3.5-5.0) g/dL Urine Color Urine Appearance (Clear) Urine pH (5.0-8.0) Ur Specific [place] (1.001-1.035) Urine Protein (Negative) Urine Glucose (UA) (Negative) Urine Ketones (Negative) Urine Blood (Negative) Urine Nitrite (Negative) Urine Bilirubin (Negative) Urine Urobilinogen (<2.0) mg/dL Ur Leukocyte Esterase (Negative) Disposition Clinical Impression: Leg weakness, Hypoglycemia Disposition: HOME SELF-CARE Condition: Good Instructions (If sedation given, give patient instructions): Weakness (ED), Hypoglycemia in a Person with Diabetes (ED) Is patient prescribed a controlled substance at d/c from ED?: No Referrals: Linda Monzon MD [Primary Care Provider] - 1-2 days Time of Disposition: 11:44
[2022-06-28 10:44] LABS: Basophils % (A) 1 %; Eosinophils # (A) 0.1 k/uL (0-0.7); Eosinophils % (A) 2 %; HCT 38.8 % (34.0-46.0); HGB 12.2 gm/dL (11.4-16.0); Lymphocytes # (A) 0.5 k/uL (1.0-4.8); Lymphocytes % (A) 13 %; MCH 30.1 pg (25.0-35.0); MCHC 31.5 g/dL (31.0-37.0); MCV 95.4 fL (80.0-100.0); Monocytes # (A) 0.2 k/uL (0-1.0); Monocytes % (A) 6 %; Neutrophils # (A) 2.9 k/uL (1.3-7.7); Neutrophils % (A) 77 %; Platelet Count 183 k/uL (150-450); RBC 4.07 m/uL (3.80-5.40); RDW 12.8 % (11.5-15.5); WBC 3.8 k/uL (3.8-10.6)
[2022-06-28 11:00] LABS: Albumin 4.1 g/dL (3.5-5.0); Calcium 9.1 mg/dL (8.4-10.2); Magnesium 2.3 mg/dL (1.6-2.3); Potassium 4.4 mmol/L (3.5-5.1); Total Bilirubin 0.4 mg/dL (0.2-1.3); Total Protein 6.3 g/dL (6.3-8.2)
[2022-06-28 11:16] LABS: Appearance,Urine Clear (Clear); Bilirubin,Urine Negative (Negative); Blood,Urine Negative (Negative); Color,Urine Light Yellow; Glucose,Urine (UA) Negative (Negative); Ketones,Urine Negative (Negative); Leukocyte Esterase,Urine Negative (Negative); Nitrite,Urine Negative (Negative); PH, Urine 7.5 (5.0-8.0); Protein,Urine Negative (Negative); Urobilinogen,Urine <2.0 mg/dL (<2.0)
== END 2022-06-28 11:53 | disposition home or self-care (01) ==
LOC: EC 10:10
DX: E11.649 Type 2 diabetes mellitus with hypoglycemia without coma (principal); I10 Essential (primary) hypertension; K21.9 Gastro-esophageal reflux disease without esophagitis; M19.90 Unspecified osteoarthritis, unspecified site; E11.10 Type 2 diabetes mellitus with ketoacidosis without coma; Z79.899 Other long term (current) drug therapy; Z79.84 Long term (current) use of oral hypoglycemic drugs; Z79.4 Long term (current) use of insulin
CPT/HCPCS: 36415; 80053; 81003; 83605; 83735; 84484; 85025; 93005; 99285

== ENCOUNTER → 2023-03-04 | Outpatient (CLI) | payer MEDICARE ==
--- NOTE | 2023-03-05 08:18 | MM ---
Reason for Exam: Screening (asymptomatic). Last mammogram was performed 1 year(s) and 5 month(s) ago. Patient History: Menarche at age 11. First Full-Term at age 20. Left ovary removed at age 44. Right ovary removed at age 44. Hysterectomy at age 44. Postmenopausal. Risk Values: Amber 5 year model risk: 1.7%. NCI Lifetime model risk: 4.5%. Prior Study Comparison: 07/30/2010 Bilateral Screening Mammogram, [facility]. 03/12/2012 Bilateral Screening Mammogram, [facility]. 01/19/2014 Bilateral Screening Mammogram, [facility]. 09/13/2020 Bilateral Screening Mammogram, [facility]. 09/26/2021 Bilateral Screening Mammogram, [facility]. Tissue Density: There are scattered fibroglandular densities. Findings: Analyzed By CAD. There is no suspicious group of microcalcifications or new suspicious mass in either breast. Benign vascular calcifications within both breasts. Overall Assessment: Benign, BI-RAD 2 Management: Screening Mammogram of both breasts in 1 year. A clinical breast exam by your physician is recommended on an annual basis and results should be correlated with mammographic findings. Electronically signed and approved by: Josue Guadalupe D.O.
== END | disposition home or self-care (01) ==
LOC: RADMAMWWP 12:39
PROVIDERS: ATTEND Family Medicine
DX: Z12.31 Encounter for screening mammogram for malignant neoplasm of breast (principal); Z78.0 Asymptomatic menopausal state
CPT/HCPCS: 77063; 77067

== ENCOUNTER → 2024-03-30 | Outpatient (CLI) | payer MEDICARE ==
--- NOTE | 2024-03-31 10:43 | MM ---
Reason for Exam: Screening (asymptomatic). Last mammogram was performed 1 year(s) and 1 month(s) ago. Patient History: Menarche at age 11. First Full-Term at age 20. Left ovary removed at age 44. Right ovary removed at age 44. Hysterectomy at age 44. Postmenopausal. Risk Values: Amber 5 year model risk: 1.7%. NCI Lifetime model risk: 4.3%. Prior Study Comparison: 09/13/2020 Bilateral Screening Mammogram, [facility]. 09/26/2021 Bilateral Screening Mammogram, [facility]. 03/04/2023 Bilateral MG 3D screening mammo w/cad, [facility]. Tissue Density: The breasts are almost entirely fatty. Findings: Analyzed By CAD. Right breast: There is no suspicious group of microcalcifications or new suspicious mass. Left breast: There is no suspicious group of microcalcifications or new suspicious mass. Overall Assessment: Negative, BI-RAD 1 Management: Screening Mammogram of both breasts in [address] [facility] will attempt to contact patient to return for supplemental views and ultrasound if indicated. Patient should continue monthly self-breast exams. A clinical breast exam by your physician is recommended on an annual basis. This exam should not preclude additional follow-up of suspicious palpable abnormalities. Note on Amber scores and lifetime risk: 1. A Amber score greater than 3% is considered moderate risk. If this is the case, consider specialist referral to assess eligibility for a risk reducing agent. 2. If overall lifetime risk for the development of breast cancer is 20% or higher, the patient may qualify for future screening with alternating mammogram and breast MRI. Electronically signed and approved by: Kailash Pereyra DO
--- NOTE | 2024-03-31 11:32 | BD ---
EXAMINATION TYPE: Axial Bone Density DATE OF EXAM: 03/30/2024 CLINICAL HISTORY: 73 years old Female. ICD-10 CODE: Z78.0 ASYMPTOMATIC MENOPAUSAL STA Height: 5 ft Weight: 192 FRAX RISK QUESTIONS: Alcohol (3 or more units per day): no Family History (Parent hip fracture): no Glucocorticoids (More than 3mos): no (Ex: prednisone, prednisolone, methylprednisolone, dexamethasone, and hydrocortisone). History of Fracture in Adulthood: yes Secondary Osteoporosis: 1. Type 1 Diabetes: no 2. Hyperthyroidism: no 3. Menopause before 45: yes 4. Malnutrition: no 5. Chronic liver disease: no Rheumatoid Arthritis: no Current Tobacco Use: no RISK FACTORS HISTORY OF: Surgery to Spine/Hip(right/left)/Wrist (right/left): no MEDICATIONS: Thyroid Medications: none Osteoporosis Medications: none EXAM MEASUREMENTS: Bone mineral densitometry was performed using the [employer]. Bone mineral density as measured about the Lumbar spine is: ----- L1-L4(G/cm2): 1.055 T Score Values are as follows: ----- L1: 0.5 ----- L2: -0.6 ----- L3: -1.6 ----- L4: -1.9 ----- L1-L4: -1.0 Z Score Values are as follows: ----- L1: 1.5 ----- L2: 0.4 ----- L3: -0.6 ----- L4: -0.9 ----- L1-L4: -0.1 Bone mineral density has: increased 4.4 % since study of: 2013 Bone mineral density about the R hip (g/cm2): 0.548 Bone mineral density about the L hip (g/cm2): 0.524 T Score values are as follows: -----R Neck: -3.5 -----L Neck: -3.7 -----R Total: -2.9 -----L Total: -2.6 Z Score values are as follows: -----R Neck: -2.2 -----L Neck: -2.3 -----R Total: -1.8 -----L Total: -1.4 Bone mineral density has: decreased -16.8 % since study of: 2013 FRAX%s: The graph provided illustrates a 37.4 % chance for a major osteoporotic fx and a 17.3 % chanc e for the hips probability for fx in 10 years time. IMPRESSION: Osteoporosis (T Score less than -2.5). There is increased fracture risk and therapy is usually indicated based on age. Re-Screen 1-2 years. NOTE: T-SCORE=SD OF THE YOUNG ADULT MEAN.
== END | disposition home or self-care (01) ==
LOC: RADBDWWP 15:47
PROVIDERS: ATTEND Family Medicine
DX: Z12.31 Encounter for screening mammogram for malignant neoplasm of breast (principal); M81.0 Age-related osteoporosis without current pathological fracture; M85.89 Other specified disorders of bone density and structure, multiple sites; Z78.0 Asymptomatic menopausal state
CPT/HCPCS: 77063; 77067; 77080

== ENCOUNTER → 2024-06-23 | Outpatient (CLI) | payer MEDICARE | END | disposition home or self-care (01) | LOC: LABPRL 10:12 | PROVIDERS: ATTEND Family Medicine | DX: E11.65 Type 2 diabetes mellitus with hyperglycemia (principal) | CPT/HCPCS: 80053; 83036; 85025 ==